=== PATIENT | female | born 1950 | race Caucasian/White ===

== ENCOUNTER → 2018-10-07 | Outpatient (CLI) | payer MEDICARE ==
[2018-10-07 17:28] LABS: BASO # 0.1 (0.02-0.10); EOS # 0.2 (0.04-0.40); EOS % 2.6 % (1.0-5.0); HEMATOCRIT 39.8 % (37.0-47.0); HEMOGLOBIN 13.2 g/dL (12.5-16.0); LYMPH# 3.1 (1.50-4.00); MEAN CELL VOLUME 93 fl (78-100); MEAN CORPUSCULAR HEMOGLOBIN 31 pg (27-31); MEAN CORPUSCULAR HGB CONC 33 g/dL (33-37); MEAN PLATELET VOLUME 9.9 fl (7.4-10.4); MONO # 0.7 (0.20-0.80); PLATELET COUNT 282 K/mm3 (130-400); RED CELL DISTRIBUTION WIDTH 12.4 % (11.5-14.5)
[2018-10-07 17:43] LABS: ALBUMIN 4.7 g/dL (3.5-5.0); CALCIUM 10.1 mg/dL (8.4-10.2); POTASSIUM 3.8 mmol/L (3.6-5.0); TOTAL BILIRUBIN 0.6 mg/dL (0.2-1.3); TOTAL PROTEIN 7.5 g/dL (6.3-8.2)
[2018-10-07 18:39] LABS: ERYTHROCYTE SEDIMENTATION RATE 9 mm/hr (0-30)
== END ==
LOC: LAB 17:09
PROVIDERS: Internal Medicine
DX: E78.2 Mixed hyperlipidemia (principal); I10 Essential (primary) hypertension

== ENCOUNTER → 2018-10-23 | Outpatient (CLI) | payer MEDICARE | LOC: RAD 13:23 | DX: S52.124A Nondisplaced fracture of head of right radius, initial encounter for closed fracture (principal); M25.511 Pain in right shoulder; W19.XXXA Unspecified fall, initial encounter ==

== ENCOUNTER → 2019-07-15 | Outpatient (CLI) | payer MEDICARE | LOC: LAB 10:01 | DX: J02.9 Acute pharyngitis, unspecified (principal) ==

== ENCOUNTER → 2019-09-13 | Outpatient (CLI) | payer MEDICARE ==
[2019-09-13 07:43] LABS: BASO # 0.1 (0.02-0.10); EOS # 0.2 (0.04-0.40); HEMATOCRIT 41.4 % (37.0-47.0); HEMOGLOBIN 13.4 g/dL (12.5-16.0); LYMPH# 2.6 (1.50-4.00); MEAN CELL VOLUME 95 fl (78-100); MEAN CORPUSCULAR HEMOGLOBIN 31 pg (27-31); MEAN CORPUSCULAR HGB CONC 32 g/dL (33-37); MEAN PLATELET VOLUME 9.9 fl (7.4-10.4); MONO # 0.6 (0.20-0.80); NEU # 3.5 (1.40-6.50); PLATELET COUNT 302 K/mm3 (130-400); RED BLOOD COUNT 4.37 M/mm3 (4.10-5.30); RED CELL DISTRIBUTION WIDTH 12.4 % (11.5-14.5); URINE APPEARANCE CLEAR; URINE BILIRUBIN NEGATIVE (NEGATIVE); URINE BLOOD 50 ery/uL (NEGATIVE); URINE COLOR YELLOW; URINE GLUCOSE NEGATIVE (NEGATIVE); URINE KETONE NEGATIVE (NEGATIVE); URINE LEUKOCYTE ESTERASE TRACE (NEGATIVE); URINE NITRATE NEGATIVE (NEGATIVE); URINE PROTEIN(semi-quant) TRACE mg/dL (NEGATIVE); URINE UROBILINOGEN NORMAL (NORMAL); WHITE BLOOD COUNT 6.9 K/mm3 (4.8-10.8)
[2019-09-13 07:44] LABS: URINE MUCUS PRESENT (NOT PRESENT)
[2019-09-13 07:45] LABS: POTASSIUM 4.2 mmol/L (3.5-5.1)
[2019-09-13 07:46] LABS: ALBUMIN 4.1 g/dL (3.4-4.8)
[2019-09-13 07:47] LABS: CALCIUM 9.2 mg/dL (8.3-10.5)
[2019-09-13 07:48] LABS: TOTAL PROTEIN 6.9 g/dL (6.2-8.1)
[2019-09-13 07:50] LABS: TOTAL BILIRUBIN 0.4 mg/dL (0.2-1.2)
[2019-09-13 08:45] LABS: ERYTHROCYTE SEDIMENTATION RATE 6 mm/hr (0-30)
== END ==
LOC: LAB 07:21
PROVIDERS: Internal Medicine
DX: Z00.00 Encounter for general adult medical examination without abnormal findings (principal); Z12.11 Encounter for screening for malignant neoplasm of colon; E11.9 Type 2 diabetes mellitus without complications; I10 Essential (primary) hypertension; E78.2 Mixed hyperlipidemia

== ENCOUNTER → 2019-09-20 | Outpatient (CLI) | payer MEDICARE | LOC: LAB 11:30 | DX: Z00.00 Encounter for general adult medical examination without abnormal findings (principal); Z12.11 Encounter for screening for malignant neoplasm of colon; E11.9 Type 2 diabetes mellitus without complications; I10 Essential (primary) hypertension; E78.2 Mixed hyperlipidemia; R20.2 Paresthesia of skin ==

== ENCOUNTER → 2020-01-23 | Outpatient (CLI) | payer MEDICARE ==
[2020-01-23 13:18] LABS: BASO # 0.1 (0.02-0.10); EOS % 0.5 % (1.0-5.0); HEMATOCRIT 41.3 % (37.0-47.0); LYMPH# 2.6 (1.50-4.00); MEAN CELL VOLUME 92 fl (78-100); MEAN CORPUSCULAR HEMOGLOBIN 31 pg (27-31); MEAN CORPUSCULAR HGB CONC 34 g/dL (33-37); MEAN PLATELET VOLUME 9.8 fl (7.4-10.4); MONO # 0.7 (0.20-0.80); NEU # 4.7 (1.40-6.50); PLATELET COUNT 303 K/mm3 (130-400); RED BLOOD COUNT 4.49 M/mm3 (4.10-5.30); RED CELL DISTRIBUTION WIDTH 12.4 % (11.5-14.5); WHITE BLOOD COUNT 8.1 K/mm3 (4.8-10.8)
[2020-01-23 13:27] LABS: ALBUMIN 4.5 g/dL (3.4-4.8); POTASSIUM 4.2 mmol/L (3.5-5.1)
[2020-01-23 13:28] LABS: CALCIUM 10.2 mg/dL (8.3-10.5)
[2020-01-23 13:30] LABS: TOTAL PROTEIN 7.3 g/dL (6.2-8.1)
[2020-01-23 13:31] LABS: TOTAL BILIRUBIN 0.5 mg/dL (0.2-1.2)
== END ==
LOC: LAB 13:02
PROVIDERS: Internal Medicine
DX: Z00.00 Encounter for general adult medical examination without abnormal findings (principal); E11.9 Type 2 diabetes mellitus without complications; I10 Essential (primary) hypertension; E78.2 Mixed hyperlipidemia

== ENCOUNTER → 2020-04-23 | Outpatient (CLI) | payer MEDICARE ==
[2020-04-23 10:29] LABS: BASO # 0.1 (0.02-0.10); EOS # 0.1 (0.04-0.40); EOS % 1.7 % (1.0-5.0); HEMATOCRIT 42.2 % (37.0-47.0); HEMOGLOBIN 13.7 g/dL (12.5-16.0); LYMPH# 2.4 (1.50-4.00); MEAN CELL VOLUME 94 fl (78-100); MEAN CORPUSCULAR HEMOGLOBIN 31 pg (27-31); MEAN CORPUSCULAR HGB CONC 33 g/dL (33-37); MEAN PLATELET VOLUME 9.4 fl (7.4-10.4); MONO # 0.7 (0.20-0.80); PLATELET COUNT 296 K/mm3 (130-400); RED BLOOD COUNT 4.47 M/mm3 (4.10-5.30); RED CELL DISTRIBUTION WIDTH 12.3 % (11.5-14.5); WHITE BLOOD COUNT 8.4 K/mm3 (4.8-10.8)
[2020-04-23 10:38] LABS: ALBUMIN 4.6 g/dL (3.4-4.8)
[2020-04-23 10:39] LABS: POTASSIUM 3.7 mmol/L (3.5-5.1)
[2020-04-23 10:41] LABS: TOTAL PROTEIN 7.4 g/dL (6.2-8.1)
[2020-04-23 10:43] LABS: TOTAL BILIRUBIN 0.4 mg/dL (0.2-1.2)
== END ==
LOC: LAB 10:04
PROVIDERS: Internal Medicine
DX: Z00.00 Encounter for general adult medical examination without abnormal findings (principal); E11.9 Type 2 diabetes mellitus without complications; I10 Essential (primary) hypertension; E78.2 Mixed hyperlipidemia

== ENCOUNTER → 2020-04-25 | Outpatient (CLI) | payer MEDICARE | LOC: MAMMO 09:10 | DX: Z12.31 Encounter for screening mammogram for malignant neoplasm of breast (principal) ==

== ENCOUNTER → 2020-07-05 | Day surgery (SDC) | payer MEDICARE | LOC: MSO 08:25 | DX: Z12.11 Encounter for screening for malignant neoplasm of colon (principal); D12.8 Benign neoplasm of rectum; G47.33 Obstructive sleep apnea (adult) (pediatric); I10 Essential (primary) hypertension; K21.9 Gastro-esophageal reflux disease without esophagitis; E11.9 Type 2 diabetes mellitus without complications; F17.210 Nicotine dependence, cigarettes, uncomplicated; E78.5 Hyperlipidemia, unspecified; Z86.010 Personal history of colon polyps; Z90.710 Acquired absence of both cervix and uterus; Z88.0 Allergy status to penicillin | CPT/HCPCS: 00811; J2704; J7030 ==

== ENCOUNTER 2020-09-07 09:50 | Outpatient (RCR) | payer MEDICARE | END 2020-12-06 | disposition home or self-care (01) | LOC: PT | DX: M76.32 Iliotibial band syndrome, left leg (principal) ==

== ENCOUNTER → 2020-09-26 | Outpatient (CLI) | payer MEDICARE ==
[2020-09-27 03:50] LABS: ALBUMIN 4.3 g/dL (3.4-4.8); CALCIUM 9.5 mg/dL (8.3-10.5); POTASSIUM 4.5 mmol/L (3.5-5.1); TOTAL BILIRUBIN 0.6 mg/dL (0.2-1.2); TOTAL PROTEIN 7.4 g/dL (6.2-8.1)
[2020-09-27 03:57] LABS: BASO # 0.1 (0.02-0.10); EOS # 0.2 (0.04-0.40); EOS % 2.2 % (1.0-5.0); HEMATOCRIT 45.1 % (37.0-47.0); HEMOGLOBIN 14.7 g/dL (12.5-16.0); LYMPH# 2.9 (1.50-4.00); MEAN CELL VOLUME 94 fl (78-100); MEAN CORPUSCULAR HEMOGLOBIN 31 pg (27-31); MEAN CORPUSCULAR HGB CONC 33 g/dL (33-37); MEAN PLATELET VOLUME 9.8 fl (7.4-10.4); MONO # 0.7 (0.20-0.80); NEU # 4.6 (1.40-6.50); PLATELET COUNT 295 K/mm3 (130-400); RED BLOOD COUNT 4.82 M/mm3 (4.10-5.30); RED CELL DISTRIBUTION WIDTH 12.9 % (11.5-14.5); WHITE BLOOD COUNT 8.5 K/mm3 (4.8-10.8)
[2020-09-27 03:58] LABS: URINE COLOR YELLOW
[2020-09-27 03:59] LABS: URINE APPEARANCE CLEAR; URINE BILIRUBIN NEGATIVE (NEGATIVE); URINE BLOOD NEGATIVE (NEGATIVE); URINE GLUCOSE NEGATIVE (NEGATIVE); URINE KETONE NEGATIVE (NEGATIVE); URINE NITRATE NEGATIVE (NEGATIVE); URINE PROTEIN(semi-quant) NEGATIVE (NEGATIVE); URINE UROBILINOGEN NORMAL (NORMAL)
[2020-09-27 04:00] LABS: URINE LEUKOCYTE ESTERASE TRACE (NEGATIVE)
[2020-09-27 04:01] LABS: URINE MUCUS PRESENT (NOT PRESENT)
== END ==
LOC: LAB 07:32
PROVIDERS: Internal Medicine
DX: E11.9 Type 2 diabetes mellitus without complications (principal); N39.0 Urinary tract infection, site not specified

== ENCOUNTER → 2021-01-21 | Outpatient (CLI) | payer MEDICARE ==
[2021-01-21 13:10] LABS: BASO # 0.11 (0.02-0.10); EOS % 1.2 % (1.0-5.0); HEMATOCRIT 42.7 % (37.0-47.0); HEMOGLOBIN 14.3 g/dL (12.5-16.0); LYMPH# 2.25 (1.50-4.00); MEAN CELL VOLUME 91 fl (78-100); MEAN CORPUSCULAR HEMOGLOBIN 31 pg (27-31); MEAN CORPUSCULAR HGB CONC 34 g/dL (33-37); MEAN PLATELET VOLUME 10.1 fl (7.4-10.4); MONO # 0.61 (0.20-0.80); NEU # 5.07 (1.40-6.50); PLATELET COUNT 332 K/mm3 (130-400); RED BLOOD COUNT 4.67 M/mm3 (4.10-5.30); RED CELL DISTRIBUTION WIDTH 12.2 % (11.5-14.5); WHITE BLOOD COUNT 8.2 K/mm3 (4.8-10.8)
[2021-01-21 14:21] LABS: URINE APPEARANCE CLEAR; URINE COLOR YELLOW
[2021-01-21 14:22] LABS: PH-URINE 5.5 (5.0 - 8.0); URINE BILIRUBIN NEGATIVE (NEGATIVE); URINE BLOOD NEGATIVE (NEGATIVE); URINE GLUCOSE NEGATIVE (NEGATIVE); URINE KETONE NEGATIVE (NEGATIVE); URINE LEUKOCYTE ESTERASE NEGATIVE (NEGATIVE); URINE NITRATE NEGATIVE (NEGATIVE); URINE PROTEIN(semi-quant) TRACE mg/dL (NEGATIVE); URINE UROBILINOGEN NORMAL (NORMAL); URINE WBC 0-1 /hpf (0-3)
[2021-01-21 14:48] LABS: POTASSIUM 4.3 mmol/L (3.5-5.1)
[2021-01-21 14:49] LABS: ALBUMIN 4.5 g/dL (3.4-4.8)
[2021-01-21 14:50] LABS: CALCIUM 10.1 mg/dL (8.3-10.5)
[2021-01-21 14:51] LABS: TOTAL PROTEIN 7.6 g/dL (6.2-8.1)
[2021-01-21 14:53] LABS: TOTAL BILIRUBIN 0.5 mg/dL (0.2-1.2)
== END ==
LOC: LAB 12:10
PROVIDERS: Internal Medicine
DX: I10 Essential (primary) hypertension (principal); E78.2 Mixed hyperlipidemia; E11.9 Type 2 diabetes mellitus without complications

== ENCOUNTER → 2021-06-03 | Outpatient (CLI) | payer MEDICARE ==
[2021-06-03 09:36] LABS: ALBUMIN 3.9 g/dL (3.4-4.8); POTASSIUM 3.8 mmol/L (3.5-5.1)
[2021-06-03 09:39] LABS: TOTAL PROTEIN 6.5 g/dL (6.2-8.1)
[2021-06-03 09:40] LABS: TOTAL BILIRUBIN 0.4 mg/dL (0.2-1.2)
[2021-06-03 11:19] LABS: CALCIUM 9.6 mg/dL (8.3-10.5)
== END ==
LOC: LAB 07:11
PROVIDERS: Internal Medicine
DX: E78.2 Mixed hyperlipidemia (principal); E11.9 Type 2 diabetes mellitus without complications

== ENCOUNTER → 2021-06-04 | Outpatient (CLI) | payer MEDICARE | LOC: LAB 07:59 | DX: E11.9 Type 2 diabetes mellitus without complications (principal) ==

== ENCOUNTER → 2021-07-16 | Outpatient (CLI) | payer MEDICARE | LOC: LAB 17:25 | DX: Z20.822 Contact with and (suspected) exposure to COVID-19 (principal) ==

== ENCOUNTER → 2022-10-07 | Outpatient (CLI) | payer MEDICARE | LOC: MAMMO 09:09 | DX: Z12.31 Encounter for screening mammogram for malignant neoplasm of breast (principal); M25.511 Pain in right shoulder; M85.80 Other specified disorders of bone density and structure, unspecified site ==

== ENCOUNTER → 2023-04-08 | Outpatient (CLI) | payer MEDICARE | LOC: RAD 16:20 | DX: I51.7 Cardiomegaly (principal) ==

== ENCOUNTER → 2023-06-05 | Outpatient (CLI) | payer MEDICARE ==
[2023-06-05 07:35] LABS: BASO # 0.09 K/mm3 (0.02-0.10); EOS % 2.2 % (1.0-5.0); HEMOGLOBIN 13.2 g/dL (12.5-16.0); LYMPH# 3.57 K/mm3 (1.50-4.00); MEAN CELL VOLUME 94 fl (78-100); MEAN CORPUSCULAR HEMOGLOBIN 31 pg (27-31); MEAN CORPUSCULAR HGB CONC 33 g/dL (33-37); MEAN PLATELET VOLUME 8.9 fl (7.4-10.4); MONO # 0.68 K/mm3 (0.20-0.80); NEU # 4.68 K/mm3 (1.40-6.50); PLATELET COUNT 306 K/mm3 (130-400); RED BLOOD COUNT 4.27 M/mm3 (4.10-5.30); RED CELL DISTRIBUTION WIDTH 12.2 % (11.5-14.5); WHITE BLOOD COUNT 9.2 K/mm3 (4.8-10.8)
[2023-06-05 07:48] LABS: ALBUMIN 3.9 g/dL (3.4-4.8)
[2023-06-05 07:49] LABS: CALCIUM 9.9 mg/dL (8.3-10.5)
[2023-06-05 07:51] LABS: TOTAL PROTEIN 6.4 g/dL (6.2-8.1)
[2023-06-05 07:52] LABS: TOTAL BILIRUBIN 0.3 mg/dL (0.2-1.2)
[2023-06-05 08:00] LABS: URINE APPEARANCE CLEAR; URINE BILIRUBIN NEGATIVE (NEGATIVE); URINE BLOOD 50 ery/uL (NEGATIVE); URINE COLOR YELLOW; URINE KETONE NEGATIVE (NEGATIVE); URINE LEUKOCYTE ESTERASE 2+ (NEGATIVE); URINE NITRATE NEGATIVE (NEGATIVE); URINE PROTEIN(semi-quant) TRACE (NEGATIVE); URINE UROBILINOGEN NORMAL (NORMAL)
[2023-06-05 08:01] LABS: URINE MUCUS PRESENT (NOT PRESENT)
[2023-06-05 08:57] LABS: ERYTHROCYTE SEDIMENTATION RATE 5 mm/hr (0-30)
[2023-06-05 09:57] LABS: MAGNESIUM 1.88 mg/dL (1.60-2.60)
== END ==
LOC: LAB 07:11
PROVIDERS: Internal Medicine
DX: Z12.11 Encounter for screening for malignant neoplasm of colon (principal); Z11.59 Encounter for screening for other viral diseases; F90.0 Attention-deficit hyperactivity disorder, predominantly inattentive type; G47.01 Insomnia due to medical condition; I10 Essential (primary) hypertension; E78.2 Mixed hyperlipidemia; E11.9 Type 2 diabetes mellitus without complications; N39.0 Urinary tract infection, site not specified; R05.9 Cough, unspecified

== ENCOUNTER → 2023-07-03 | Outpatient (CLI) | payer MEDICARE | LOC: RAD 13:30 | DX: R05.9 Cough, unspecified (principal) | CPT/HCPCS: Q9967 ==

== ENCOUNTER → 2023-09-05 | Outpatient (CLI) | payer MEDICARE ==
[2023-09-05 09:11] LABS: BASO # 0.05 K/mm3 (0.02-0.10); EOS # 0.17 K/mm3 (0.04-0.40); EOS % 2.7 % (1.0-5.0); HEMATOCRIT 40.6 % (37.0-47.0); HEMOGLOBIN 13.6 g/dL (12.5-16.0); LYMPH# 1.85 K/mm3 (1.50-4.00); MEAN CELL VOLUME 93 fl (78-100); MEAN CORPUSCULAR HEMOGLOBIN 31 pg (27-31); MEAN CORPUSCULAR HGB CONC 34 g/dL (33-37); MEAN PLATELET VOLUME 10.4 fl (7.4-10.4); MONO # 0.53 K/mm3 (0.20-0.80); NEU # 3.64 K/mm3 (1.40-6.50); PLATELET COUNT 182 K/mm3 (130-400); RED BLOOD COUNT 4.36 M/mm3 (4.10-5.30); RED CELL DISTRIBUTION WIDTH 11.9 % (11.5-14.5); WHITE BLOOD COUNT 6.3 K/mm3 (4.8-10.8)
[2023-09-05 09:19] LABS: ALBUMIN 4.2 g/dL (3.4-4.8)
[2023-09-05 09:20] LABS: CALCIUM 9.5 mg/dL (8.3-10.5)
[2023-09-05 09:22] LABS: TOTAL PROTEIN 6.8 g/dL (6.2-8.1)
[2023-09-05 09:23] LABS: TOTAL BILIRUBIN 0.38 mg/dL (0.2-1.2)
[2023-09-05 09:28] LABS: MAGNESIUM 1.86 mg/dL (1.60-2.60)
== END ==
LOC: LAB 08:31
PROVIDERS: Internal Medicine
DX: Z12.39 Encounter for other screening for malignant neoplasm of breast (principal); M85.80 Other specified disorders of bone density and structure, unspecified site; G47.01 Insomnia due to medical condition; J45.40 Moderate persistent asthma, uncomplicated; M25.511 Pain in right shoulder; R20.2 Paresthesia of skin

== ENCOUNTER → 2023-09-09 | Outpatient (CLI) | payer MEDICARE ==
[2023-09-09 23:48] LABS: INSULIN 12 uIU/mL (2-23)
== END ==
LOC: LAB 12:48
PROVIDERS: Internal Medicine
DX: I10 Essential (primary) hypertension (principal); E11.9 Type 2 diabetes mellitus without complications

== ENCOUNTER → 2023-09-25 | Outpatient (CLI) | payer MEDICARE | LOC: RAD 11:01 | DX: M51.36 Other intervertebral disc degeneration, lumbar region (principal); M51.37 Other intervertebral disc degeneration, lumbosacral region; M25.552 Pain in left hip ==

== ENCOUNTER → 2024-01-12 | Day surgery (SDC) | payer MEDICARE ==
[~2024-01-12] VITALS: Ht 175.3 cm; Wt 78.2 kg
[~2024-01-12] MED LIST: Iohexol 300 - 10 ML VIAL IV ONE; Lidocaine PF 2% (20 MG/ML) 2 ML VIAL IJ ONE
== END ==
LOC: MSO 09:39
DX: M48.062 Spinal stenosis, lumbar region with neurogenic claudication (principal); M54.16 Radiculopathy, lumbar region
CPT/HCPCS: J1100; Q9967

== ENCOUNTER → 2024-02-02 | Day surgery (SDC) | payer MEDICARE | LOC: MSO 13:34 | DX: M54.16 Radiculopathy, lumbar region (principal); M46.1 Sacroiliitis, not elsewhere classified; M47.896 Other spondylosis, lumbar region; G96.191 Perineural cyst ==

== ENCOUNTER → 2024-09-08 | Outpatient (CLI) | payer MEDICARE | LOC: LAB 09:52 | DX: R30.0 Dysuria (principal) ==

== ENCOUNTER → 2024-10-01 | Outpatient (CLI) | payer MEDICARE ==
[2024-10-01 09:46] LABS: URINE APPEARANCE CLEAR (CLEAR); URINE COLOR YELLOW (YELLOW)
[2024-10-01 09:50] LABS: URINE BILIRUBIN NEGATIVE (NEGATIVE); URINE GLUCOSE NEGATIVE (NEGATIVE); URINE KETONE NEGATIVE (NEGATIVE); URINE NITRATE NEGATIVE (NEGATIVE); URINE PROTEIN(semi-quant) NEGATIVE (NEGATIVE)
[2024-10-01 09:51] LABS: URINE BLOOD TRACE-LYSED (NEGATIVE); URINE LEUKOCYTE ESTERASE 2+ (NEGATIVE); URINE WBC >50 /hpf (0-3)
== END ==
LOC: LAB 08:05
PROVIDERS: Family Medicine
DX: N39.0 Urinary tract infection, site not specified (principal)